=== PATIENT | female | born 1990 | race African-American/Black ===

== ENCOUNTER 2019-04-19 15:34 | Emergency (ER) | payer MEDICAID ==
[~2019-04-19] VITALS: Ht 177.8 cm; Wt 103.0 kg
[2019-04-19 16:34] VITALS: BP 115/85
== END 2019-04-19 17:09 | disposition left against medical advice (07) ==
LOC: ER 15:34
DX: M54.9 Dorsalgia, unspecified (principal)
CPT/HCPCS: 99283